=== PATIENT | male | born 1985 | race Caucasian/White ===

== ENCOUNTER 2017-03-28 15:36 | Emergency (ER) | payer MEDICAID, OTHER ==
[~2017-03-28] VITALS: Ht 193 cm; Wt 110.0 kg
[~2017-03-28 15:36] MED LIST: CHLO.12%30 SSP; NAPR-576 PO; PENI500T PO
[2017-03-28 15:40] VITALS: BP 158/105; PULSE 77; RESP 20; TEMP 97.6; O2SAT 99
--- NOTE | 2017-03-28 15:54 | PD ---
Physical Exam Time Seen by Provider: 15:52 Narrative 31 y/o male here for evaluation of L sided dental pain radiating to L ear for 2 days. Vital signs reviewed. seen at triage desk. Awaiting bed placement. Data Data Last Documented VS Vital Signs Date Time Temp Pulse Resp B/P Pulse Ox O2 Delivery O2 Flow Rate FiO2 03/28/17 15:40 97.6 77 20 158/105 99 Room Air MDM Medical Record Reviewed: Yes Supervised Visit with GEOFF: Chris Munguia Mar 28, 2017 15:53
[2017-03-28] MEDS ORDERED: AMOX500C PO (17:49)
[2017-03-28] MEDS ORDERED: IBUP800T23 PO (17:49)
[2017-03-28] MEDS ORDERED: PERI0.126 SWISH-SPIT (17:50)
--- NOTE | 2017-03-28 17:51 | PD ---
HPI Chief Complaint: Chest Pain Time Seen by Provider: 17:48 Travel History International Travel<30 days: No Contact w/Intl Traveler<30days: No Traveled to known affect area: No History of Present Illness HPI 31-year-old male presents emergency Department with complaint of left lower tooth pain 2 days. Denies fever, vomiting. Denies facial erythema, edema. Pain radiates to the left ear. Denies Difficulty swallowing or sore throat. Took a Lortab last night for symptom management. Mild in severity. Has no other medical complaints. No known allergies. No other modifying factors or associated signs and symptoms. PFSH Past Medical History Diminished Hearing: No Immunizations Current: No Past Surgical History Oral Surgery: Yes (Jaw fx) Social History Alcohol Use: No Tobacco Use: Yes (1/2 PPD) Substance Use: No Allergies-Medications (Allergen,Severity, Reaction): Coded Allergies: *MDRO Multi-Drug Resistant Organism (Unverified Allergy, Unknown, 03/28/17) MRSA 2013 Reported Meds & Prescriptions Reported Meds & Active Scripts Active Peridex Liq (Chlorhexidine Gluconate (Mouth) Liq) 0.12% Soln 15 Ml SWISH-SPIT BID 10 Days Ibuprofen 800 Mg Tab 800 Mg PO Q6HR PRN Amoxicillin 500 Mg Cap 500 Mg PO BID 10 Days Peridex Oral Rinse (Chlorhexidine Gluconate) 0.12 % Jo Ann 15 Ml SSP Q6HR 5 Days Naproxen 500 Mg Tab 500 Mg PO Q12HR PRN Pen Vk (Penicillin V Potassium) 500 Mg Tab 500 Mg PO Q6 10 Days Review of Systems Except as stated in HPI: all other systems reviewed are Neg Physical Exam Narrative GENERAL: Well-nourished, well-developed male patient, in no acute distress; afebrile, nontoxic-appearing SKIN: Warm and dry. HEAD: Atraumatic. Normocephalic. No facial edema, erythema, tenderness on palpation. No lymphadenopathy. EYES: Pupils equal and round. No scleral icterus. No injection or drainage. ENT: Mucosa pink and moist. No erythema or exudates. No uvular edema. No uvular , palatal, or tonsillar deviation. Airway patent. MOUTH: Mucous membranes moist, no lesions, tongue and gums appear normal. Poor dentition throughout. Tooth #20 with tenderness on palpation; large dental cavity and decay . Multiple dental cavities noted throughout. Surrounding gingiva is without erythema, edema, drainage. No obvious abscess noted. NECK: Trachea midline. No lymphadenopathy. CARDIOVASCULAR: Regular rate. RESPIRATORY: No accessory muscle use. GASTROINTESTINAL: Rounded. MUSCULOSKELETAL: No obvious deformities. No clubbing. No cyanosis. No edema. NEUROLOGICAL: Awake and alert. Oriented 3. No obvious cranial nerve deficits. Motor grossly within normal limits. Normal speech. PSYCHIATRIC: Appropriate mood and affect; insight and judgment normal. Data Data Last Documented VS Vital Signs Date Time Temp Pulse Resp B/P Pulse Ox O2 Delivery O2 Flow Rate FiO2 03/28/17 15:40 97.6 77 20 158/105 99 Room Air MDM Medical Decision Making Medical Screen Exam Complete: Yes Emergency Medical Condition: Yes Medical Record Reviewed: Yes Differential Diagnosis Dentalgia, dental abscess, dental cavities, gingivitis Narrative Course 31-year-old male with dentalgia and multiple dental cavities to tooth #20. No facial edema erythema. Patient is afebrile and nontoxic-appearing. He denies fever, vomiting. Emergency dental information sheet provided. Amoxicillin, Peridex mouth rinse, ibuprofen prescribed for home. Instructed patient to follow up with dentist. Instructed patient to follow up with primary care provider. Patient verbalizes understanding and agreement with treatment plan. Patient is medically cleared and stable for discharge. Discussed reasons to return to the emergency department. Patient agrees with treatment plan. The patients vital signs are stable and the patient is stable for outpatient follow- up and treatment. Patient discharged home, stable and in no acute distress. Diagnosis Primary Impression: Dentalgia Additional Impression: Dental caries Referrals: Dentist Primary Care Physician Patient Instructions: Dental Abscess (ED), Dental Caries (ED), General Instructions, Toothache (ED) Departure Forms: Tests/Procedures, Work Release Enter return to work date: Mar 29, 2017 Additional Instructions: Complete full course of antibiotics Ibuprofen or Tylenol as directed and as needed to reduce pain and inflammation Use Peridex as directed for oral hygiene Warm or cool compresses to the affected area Follow-up with dentist Follow-up with primary care provider Return to emergency department immediately with worsening of symptoms Med/Other Pt SpecificInfo: Prescription(s) given Scripts Chlorhexidine Gluconate (Mouth) Liq (Peridex Liq)0.12% Soln15 Ml SWISH-SPIT BID 10 Days Ref 0 Prov:Arti Benites [employer] 03/28/17 Ibuprofen 800 Mg [id number] Mg PO Q6HR PRN (PAIN) #30 TAB Ref 0 Prov:Arti Beniets 03/28/17 Amoxicillin 500 Mg [id number] Mg PO BID 10 Days Ref 0 Prov:Arti Benites 03/28/17 Disposition: 01 DISCHARGE HOME Condition: Stable Arti Benites Mar 28, 2017 17:51
== END 2017-03-28 18:15 | disposition home or self-care (01) ==
LOC: NEPK 15:36
DX: K02.9 Dental caries, unspecified (principal); F17.200 Nicotine dependence, unspecified, uncomplicated; Z79.899 Other long term (current) drug therapy
CPT/HCPCS: 99283